=== PATIENT | male | born 1995 | race Caucasian/White ===

== ENCOUNTER 2021-03-20 21:36 | Inpatient (IN) | payer OTHER, SELFPAY ==
[2021-03-20 21:59] LABS: Absolute Lymphocytes (CBC) 0.8 K/uL (0.7-4.9); Basophils % 0.2 % (0-1.3); Hematocrit 51.3 % (39.6-49.0); Lymphocytes % 2.9 % (15.3-44.8); MPV 9.2 fL (7.6-11.3); RBC Red Blood Cell Count 5.73 M/uL (4.33-5.43)
[2021-03-20] MEDS ORDERED: NA CHLORIDE 0.9% 1,000 ML ONE ×2 (22:03→23:53)
[2021-03-20] MEDS ORDERED: ONDANSETRON 4 MG/2 ML VIAL ONE ×2 (22:06→22:51)
[2021-03-20 22:07] LABS: Protime INR 1.08
[2021-03-20 22:39] LABS: ALT/SGPT 31 U/L (12-78); AST/SGOT 18 U/L (15-37); Alkaline Phosphatase 106 U/L (45-117); BUN Blood Urea Nitrogen 28 mg/dL (7-18); Bicarbonate 25 mmol/L (21-32); Bilirubin Direct 0.2 mg/dL (0-0.2); Bilirubin Total 1.8 mg/dL (0.2-1.0); Creatine Phosphokinase 265 U/L (39-308); Glucose Level 153 mg/dL (74-106); Magnesium 2.7 mg/dL (1.8-2.4); NT PRO-BNP 1152 pg/mL (<125); Potassium 4.4 mmol/L (3.5-5.1); Protein, Total 11.6 g/dL (6.4-8.2); Sodium Level 133 mmol/L (136-145); Troponin (Emerg Dept Use Only) < 0.02 ng/mL (0.0-0.045)
[2021-03-20 22:56] LABS: Blood Morphology Comment NOT SEEN (NOT SEEN); Platelet Estimate ADEQ
[2021-03-20 23:02] LABS: Albumin 6.4 g/dL (3.4-5.0)
[2021-03-21] MEDS ORDERED: D5 0.9 NS 1,000 ML IV ONE (00:13)
[2021-03-21] MEDS ORDERED: METOCLOPRAMIDE 10 MG/2mL INJ ONE (00:14)
--- NOTE | 2021-03-21 01:19 | EDPHYS ---
Physician Documentation [facility] Name: Shivam Larson Age: 26 yrs Sex: Male : 1995 Arrival Date: 03/20/2021 Time: 21:38 Bed 27 Private MD: ED Physician Jesus Delatorre HPI: 03/20 22:51 This 26 yrs old Male presents to ER via EMS with complaints of Vomiting. mh7 22:51 The patient presents to the emergency department with nausea, that is moderate, mh7 vomiting, that is intermittent, described as clear fluid. Onset: The symptoms/episode began/occurred today. Possible causes: unknown. The symptoms are aggravated by nothing. The symptoms are alleviated by nothing. Associated signs and symptoms: Pertinent negatives: abdominal pain, anorexia, belching, constipation, diarrhea, dysuria, fever, flatulence, GI bleeding, hematuria. Severity of symptoms: At their worst the symptoms were moderate today, in the emergency department the symptoms have improved markedly. 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 He states that he has been working outside all day.. Historical: - Allergies: 21:52 No Known Allergies; ea - Home Meds: 21:52 None [Active]; ea - PMHx: 21:52 None; ea - PSHx: 21:52 None; ea - Immunization history:: Adult Immunizations up to date. - Social history:: Smoking status: Patient denies any tobacco usage or history of. ROS: 22:51 Constitutional: Negative for fever, chills, and weight loss, Eyes: Negative for injury, mh7 pain, redness, and discharge, ENT: Negative for injury, pain, and discharge, Neck: Negative for injury, pain, and swelling, Cardiovascular: Negative for chest pain, palpitations, and edema, Respiratory: Negative for shortness of breath, cough, wheezing, and pleuritic chest pain, Back: Negative for injury and pain, : Negative for injury, bleeding, discharge, and swelling, MS/Extremity: Negative for injury and deformity, Skin: Negative for injury, rash, and discoloration, Neuro: Negative for headache, weakness, numbness, tingling, and seizure, Psych: Negative for depression, anxiety, suicide ideation, homicidal ideation, and hallucinations, Allergy/Immunology: Negative for hives, rash, and allergies, Endocrine: Negative for neck swelling, polydipsia, polyuria, polyphagia, and marked weight changes, Hematologic/Lymphatic: Negative for swollen nodes, abnormal bleeding, and unusual bruising. Exam: 22:51 Constitutional: This is a well developed, well nourished patient who is awake, alert, mh7 and in no acute distress. Head/Face: Normocephalic, atraumatic. Eyes: Pupils equal round and reactive to light, extra-ocular motions intact. Lids and lashes normal. Conjunctiva and sclera are non-icteric and not injected. Cornea within normal limits. Periorbital areas with no swelling, redness, or edema. Neck: Trachea midline, no thyromegaly or masses palpated, and no cervical lymphadenopathy. Supple, full range of motion without nuchal rigidity, or vertebral point tenderness. No Meningismus. Chest/axilla: Normal chest wall appearance and motion. Nontender with no deformity. No lesions are appreciated. Cardiovascular: Regular rate and rhythm with a normal S1 and S2. No gallops, murmurs, or rubs. Normal PMI, no JVD. No pulse deficits. Respiratory: Lungs have equal breath sounds bilaterally, clear to auscultation and percussion. No rales, rhonchi or wheezes noted. No increased work of breathing, no retractions or nasal flaring. Abdomen/GI: Soft, non-tender, with normal bowel sounds. No distension or tympany. No guarding or rebound. No evidence of tenderness throughout. Back: No spinal tenderness. No costovertebral tenderness. Full range of motion. Skin: Warm, dry with normal turgor. Normal color with no rashes, no lesions, and no evidence of cellulitis. MS/ Extremity: Pulses equal, no cyanosis. Neurovascular intact. Full, normal range of motion. Neuro: Awake and alert, GCS 15, oriented to person, place, time, and situation. Cranial nerves II-XII grossly intact. Motor strength 5/5 in all extremities. Sensory grossly intact. Cerebellar exam normal. Normal gait. Psych: Awake, alert, with orientation to person, place and time. Behavior, mood, and affect are within normal limits. Vital Signs: 21:39 BP 152 / 93; Pulse 83; Resp 18; Temp 98; Pulse Ox 99% ; ea 22:30 BP 135 / 84; Pulse 73; Resp 19; Pulse Ox 100% ; rr5 03/21 00:00 BP 132 / 81; Pulse 75; Resp 20; Pulse Ox 98% ; rr5 01:15 BP 121 / 70; Pulse 70; Resp 16; Pulse Ox 98% ; Weight 95.25 kg; Height 6 ft. 2 in. rr5 (187.96 cm); 01:15 Body Mass Index 26.96 (95.25 kg, 187.96 cm) rr5 MDM: 01:16 Differential diagnosis: gastritis, pancreatitis, diverticulitis, viral gastroenteritis, mh7 gastroenteritis, Substance Abuse. Data reviewed: vital signs, nurses notes, EMS record, lab test result(s), CBC, electrolytes, urinalysis, EKG, radiologic studies, CT scan, plain films. Data interpreted: Pulse oximetry: on room air is 98 %. Interpretation: normal. Counseling: I had a detailed discussion with the patient and/or guardian regarding: the historical points, exam findings, and any diagnostic results supporting the discharge/admit diagnosis, lab results, radiology results, the need for further work-up and treatment in the hospital. Response to treatment: the patient's symptoms have mildly improved after treatment. 01:19 Patient medically screened. [facility] 03/20 21:40 Order name: Basic Metabolic Panel; Complete Time: 23: 03/20 21:40 Order name: CBC with Diff; Complete Time: : 03/20 21:40 Order name: LFT's; Complete Time: 23: 03/20 21:40 Order name: Magnesium; Complete Time: 23: 03/20 21:40 Order name: NT PRO-BNP; Complete Time: 23: 03/20 21:40 Order name: PT-INR; Complete Time: 22:54 03/20 21:40 Order name: Troponin (emerg Dept Use Only); Complete Time: 23:03/20 21:50 Order name: CPK; Complete Time: 23: 03/20 21:50 Order name: Acetaminophen; Complete Time: 23: 03/20 21:50 Order name: ETOH Level; Complete Time: 22:54 03/20 21:50 Order name: Ptt, Activated; Complete Time: 22:54 03/20 21:50 Order name: Salicylate; Complete Time: 22:54 03/20 21:50 Order name: Urine Drug Screen 03/20 22:07 Order name: Lipase [facility] 03/20 22:07 Order name: Lipase; Complete Time: 23:50 [facility] 03/20 22:11 Order name: Blood Culture Adult (2) [facility] 03/20 22:11 Order name: Manual Differential; Complete Time: 23:25 [facility] 03/20 22:12 Order name: Blood Culture [facility] 03/21 01:14 Order name: Procalcitonin [facility] 03/21 01:14 Order name: CRP [facility] 03/21 01:14 Order name: Procalcitonin [facility] 03/21 01:14 Order name: C-Reactive Protein [facility] 03/21 01:18 Order name: COVID-19 : Document "Date of Symptom Onset" if Symptomatic. [facility] 03/21 01:18 Order name: CORONAVIRUS [facility] 03/21 04:10 Order name: SARS-COV-2 RT PCR [facility] 03/21 06:01 Order name: Urine Dipstick-Ancillary [facility] 03/21 06:11 Order name: CBC with Automated Diff [facility] 03/21 06:41 Order name: Comprehensive Metabolic Panel [facility] 03/21 06:41 Order name: Uric Acid [facility] 03/21 06:41 Order name: Creatine Phosphokinase [facility] 03/20 21:40 Order name: XRAY Chest (1 view) 03/20 21:40 Order name: EKG; Complete Time: 21:41 03/20 21:40 Order name: Cardiac monitoring; Complete Time: 21:44 03/20 21:40 Order name: EKG - Nurse/Tech; Complete Time: 21:43 03/20 21:40 Order name: IV Saline Lock; Complete Time: 21:43 03/20 21:40 Order name: Labs collected and sent; Complete Time: 21:44 03/20 21:40 Order name: O2 Per Protocol; Complete Time: 21:44 03/20 21:40 Order name: O2 Sat Monitoring; Complete Time: 21:46 03/20 21:50 Order name: Urine Dipstick-Ancillary (obtain specimen); Complete Time: 05:56 03/20 23:27 Order name: CT Abd/Pelvis - Without Contrast [facility] 03/21 06:41 Order name: T4 Free [facility] 03/21 06:41 Order name: Magnesium [facility] 03/21 06:41 Order name: Thyroid Stimulating Hormone [facility] 03/21 08:04 Order name: Urine Microscopic Only [facility] 03/21 12:50 Order name: EDMS Administered Medications: 03/20 22:21 Drug: Zofran (Ondansetron) 4 mg Route: IVP; Site: right antecubital; ea 03/21 00:27 Follow up: Response: No adverse reaction ea 03/20 22:21 Drug: NS 0.9% 1000 ml Route: IV; Rate: 1 bolus; Site: right antecubital; ea 23:10 Follow up: Response: No adverse reaction; IV Status: Completed infusion; IV Intake: rr5 1000ml 23:36 Drug: NS 0.9% 1000 ml Route: IV; Rate: 1000 ml; Site: right antecubital; ea 03/21 01:00 Follow up: Response: No adverse reaction; IV Status: Completed infusion; IV Intake: rr5 1000ml 03/20 23:50 Not Given (Other Intervention Used): Pepcid (famotidine) 20 mg IVP once; dilute with 10 ea mL 0.9% NaCl; give over 2 minutes 03/21 01:03 Drug: Reglan (metoCLOPramide) 10 mg Route: IVP; Site: right antecubital; ea 02:10 Follow up: Response: No adverse reaction rr5 01:04 Drug: D5-NS 1000 ml Route: IV; Rate: bolus; Site: right antecubital; ea 05:34 Follow up: Response: No adverse reaction; IV Status: Completed infusion; IV Intake: rr5 1000ml Disposition: 03/21/21 01:19 Hospitalization ordered by Keith Dean for Inpatient Admission. Preliminary diagnosis are Dehydration, Nausea and vomiting - Intractable, Acute Kidney Injury, Leukocytosis. - Bed requested for Telemetry/MedSurg (Inpatient). - Status is Inpatient Admission. zb - Condition is Stable. - Problem is new. - Symptoms have improved. Signatures: Dispatcher [employer] EDMS Rebecca Matos RN Kennedy Ellison FNP-C RETURNS SUPERVISOR-Cla1 Oralia Garner RN RN ea [place], MyKena 2 Jesus Delatorre MD MD [facility] Noy Cole RN RN zb Roque Michael RN rr5 Corrections: (The following items were deleted from the chart) 03/20 21:51 21:50 Suicide Screening ([place]) ordered. ea ea 03/21 01:21 01:19 Hospitalization Ordered by Michael Fernandez MD for Inpatient Admission. Preliminary la1 diagnosis is Dehydration; Nausea and vomiting - Intractable; Acute Kidney Injury; Leukocytosis. Bed requested for Telemetry/MedSurg (Inpatient). Status is Inpatient Admission. Condition is Stable. Problem is new. Symptoms have improved. mh7 02:47 01:21 03/21/2021 01:19 Hospitalization Ordered by Keith Dean DO for Inpatient mw2 Admission. Preliminary diagnosis is Dehydration; Nausea and vomiting - Intractable; Acute Kidney Injury; Leukocytosis. Bed requested for Telemetry/MedSurg (Inpatient). Status is Inpatient Admission. Condition is Stable. Problem is new. Symptoms have improved. la1 12:46 02:47 03/21/2021 01:19 Hospitalization Ordered by Keith Dean DO for Inpatient dw Admission. Preliminary diagnosis is Dehydration; Nausea and vomiting - Intractable; Acute Kidney Injury; Leukocytosis. Bed requested for [facility] ER HOLD. Status is Inpatient Admission. Condition is Stable. Problem is new. Symptoms have improved. mw2 13:48 12:46 03/21/2021 01:19 Hospitalization Ordered by Keith Dean DO for Inpatient zb Admission. Preliminary diagnosis is Dehydration; Nausea and vomiting - Intractable; Acute Kidney Injury; Leukocytosis. Bed requested for Telemetry/MedSurg (Inpatient). Status is Inpatient Admission. Condition is Stable. Problem is new. Symptoms have improved. dw
--- NOTE | 2021-03-21 01:19 | ER ---
Nurse's Notes [facility] Name: Shivam Larson Age: 26 yrs Sex: Male : 1995 Arrival Date: 03/20/2021 Time: 21:38 Bed 27 Private MD: Diagnosis: Dehydration;Nausea and vomiting-Intractable;Acute Kidney Injury;Leukocytosis Presentation: 03/20 21:39 Ebola Screen: No symptoms or risks identified at this time. Initial Sepsis Screen: Does ea the patient meet any 2 criteria? No. Patient's initial sepsis screen is negative. Does the patient have a suspected source of infection? No. Patient's initial sepsis screen is negative. Risk Assessment: Do you want to hurt yourself or someone else? Patient reports no desire to harm self or others. 21:39 Acuity: CRISTOBAL 3 ea 21:48 Chief complaint: EMS states: Pt reported he took xos last night was up all night and ea went to work outside [place], pt reported he started to feel cramping all over. Coronavirus screen: At this time, the client does not indicate any symptoms associated with coronavirus-19. Onset of symptoms was March 20, 2021. 21:48 Method Of Arrival: EMS: [facility] ea Triage Assessment: 21:52 General: Appears uncomfortable, Behavior is appropriate for age. Pain: Complains of ea pain in generalized Quality of pain is described as crampy. Historical: - Allergies: 21:52 No Known Allergies; ea - Home Meds: 21:52 None [Active]; ea - PMHx: 21:52 None; ea - PSHx: 21:52 None; ea - Immunization history:: Adult Immunizations up to date. - Social history:: Smoking status: Patient denies any tobacco usage or history of. Screenin:39 Abuse screen: Denies threats or abuse. Nutritional screening: No deficits noted. ea Tuberculosis screening: No symptoms or risk factors identified. Fall Risk None identified. Assessment: 03/21 00:00 Reassessment: Patient appears in no apparent distress at this time. Patient is alert, rr5 oriented x 3, equal unlabored respirations, skin warm/dry/pink. back from CT scan awaiting for results. Vital Signs: 03/20 21:39 BP 152 / 93; Pulse 83; Resp 18; Temp 98; Pulse Ox 99% ; ea 22:30 BP 135 / 84; Pulse 73; Resp 19; Pulse Ox 100% ; rr5 03/21 00:00 BP 132 / 81; Pulse 75; Resp 20; Pulse Ox 98% ; rr5 01:15 BP 121 / 70; Pulse 70; Resp 16; Pulse Ox 98% ; Weight 95.25 kg; Height 6 ft. 2 in. rr5 (187.96 cm); 01:15 Body Mass Index 26.96 (95.25 kg, 187.96 cm) rr5 ED Course: 03/20 21:35 Inserted saline lock: 20 gauge in right antecubital area, using aseptic technique. rr5 ,using aseptic technique. inserted by oralia LOJA Blood collected. 21:38 Patient arrived in ED. ea 21:39 Patient has correct armband on for positive identification. Bed in low position. Call ea light in reach. Side rails up X2. 21:40 Triage completed. ea 21:40 EKG done, by ED staff, reviewed by Jesus Delatorre MD. rr5 21:41 Jesus Delatorre MD is Attending Physician. 7 21:48 Oralia Garner, FREEDOM is Primary Nurse. ea 21:51 Arm band placed on right wrist. Patient placed in an exam room, on a stretcher, on ea pulse oximetry. 21:55 XRAY Chest (1 view) In Process Unspecified. EDMS 03/21 00:14 CT Abd/Pelvis - Without Contrast In Process Unspecified. EDMS 00:15 No provider procedures requiring assistance completed. rr5 01:18 Michael Fernandez MD is Hospitalizing Provider. mh7 01:21 Keith Dean DO is Hospitalizing Provider. la1 01:45 Patient admitted, IV remains in place. ea 13:15 Primary Nurse role handed off by Oralia Garner, FREEDOM eb Administered Medications: 03/20 22:21 Drug: Zofran (Ondansetron) 4 mg Route: IVP; Site: right antecubital; ea 03/21 00:27 Follow up: Response: No adverse reaction ea 03/20 22:21 Drug: NS 0.9% 1000 ml Route: IV; Rate: 1 bolus; Site: right antecubital; ea 23:10 Follow up: Response: No adverse reaction; IV Status: Completed infusion; IV Intake: rr5 1000ml 23:36 Drug: NS 0.9% 1000 ml Route: IV; Rate: 1000 ml; Site: right antecubital; ea 03/21 01:00 Follow up: Response: No adverse reaction; IV Status: Completed infusion; IV Intake: rr5 1000ml 03/20 23:50 Not Given (Other Intervention Used): Pepcid (famotidine) 20 mg IVP once; dilute with 10 ea mL 0.9% NaCl; give over 2 minutes 03/21 01:03 Drug: Reglan (metoCLOPramide) 10 mg Route: IVP; Site: right antecubital; ea 02:10 Follow up: Response: No adverse reaction rr5 01:04 Drug: D5-NS 1000 ml Route: IV; Rate: bolus; Site: right antecubital; ea 05:34 Follow up: Response: No adverse reaction; IV Status: Completed infusion; IV Intake: rr5 1000ml Intake: 03/20 23:10 IV: 1000ml; Total: 1000ml. rr5 03/21 01:00 IV: 1000ml; Total: 2000ml. rr5 05:34 IV: 1000ml; Total: 3000ml. rr5 Outcome: 01:19 Decision to Hospitalize by Provider. [facility] 01:44 Admitted to ER Hold. Please see [facility] for further documentation. 01:44 Condition: stable 01:44 Instructed on the need for admit, Demonstrated understanding of instructions. 13:48 Patient left the ED. zb Signatures: Dispatcher [employer] EDMS Kennedy Coyle, REWORK OPERATOR-C REWORK OPERATOR-Cla1 Oralia Garner RN Renetta Metzger ea, Raymond, RN RN rr5 Jesus Delatorre MD MD 7 Noy Cole RN RN zb
--- NOTE | 2021-03-21 01:55 | P.HP ---
Certification for Inpatient Patient admitted to: Inpatient With expected LOS: >2 Midnights Patient will require the following post-hospital care: None Practitioner: I am a practitioner with admitting privileges, knowledge of patient current condition, hospital course, and medical plan of care. Services: Services provided to patient in accordance with Admission requirements found in Title 42 Section 412.3 of the Code of Federal Regulations Patient History Date of Service: 03/21/21 Primary Care Provider: none Reason for admission: Acute renal failure History of Present Illness: 26-year-old male with no significant past medical history presents emergency department for dehydration, cramps. Patient reports taking m ethamphetamine the night before last and working outside doing [employer] all day today. Patient is evaluated in the emergency department, labs significant for white blood cell count 27 point to sodium 133, chloride 92 creatinine 4.21 GFR 17 glucose 153 calcium 11.1 magnesium 2.7 T. bili 1.8 BNP 1150 to albumin 6.4. Patient appears very dehydrated. Patient does not appear septic, afebrile labs likely related to severe dehydration. Blood cultures, pro calcitonin ordered and pending. Patient given 3 L fluids in the emergency department ED provider wishes to admit for further evaluation and management of acute renal failure. - Past Medical/Surgical History -: Drug abuse -: none Psychosocial/ Personal History: Lives alone, works in [employer] - Family History Mother -: Cancer - Social History Smoking Status: Current some day smoker Alcohol use: Yes CD- Drugs: Yes Caffeine use: Yes Place of Residence: Home Review of Systems 10-point ROS is otherwise unremarkable General: Sweats, Weakness, Malaise, As per HPI Physical Examination - Physical Exam General: Alert, In no apparent distress, Oriented x3 HEENT: Atraumatic, PERRLA, Other (Mucous membranes dry) Neck: Supple, 2+ carotid pulse no bruit, No LAD Respiratory: Clear to auscultation bilaterally, Normal air movement Cardiovascular: Regular rate/rhythm, Normal S1 S2 Gastrointestinal: Normal bowel sounds, No tenderness Musculoskeletal: No tenderness Integumentary: No rashes Neurological: Normal speech, Normal strength at 5/5 x4 extr, Normal tone, Normal affect - Studies Laboratory Data (last 24 hrs) 03/20/21 21:45: Lipase 88 03/20/21 21:42: APTT 30.9 03/20/21 21:42: PT 12.4, INR 1.08 03/20/21 21:42: WBC 27.20 H*, Hgb 17.7, Hct 51.3 H, Plt Count 315 03/20/21 21:42: Sodium 133 L, Potassium 4.4, BUN 28 H, Creatinine 4.21 H, Glucose 153 H, Magnesium 2.7 H, Total Bilirubin 1.8 H, AST 18, ALT 31, Alkaline Phosphatase 106 Assessment and Plan - Plan Assessment Acute renal failure, leukocytosis, hyperalbuminemia, hypercalcemia secondary to severe dehydration complicated with amphetamine use Plan Acute renal failure, leukocytosis, hyperalbuminemia, hypercalcemia secondary to severe dehydration complicated with amphetamine use: Patient given 3 L of fluids in the emergency department, will continue IV fluids for hydration, repeat CBCs/chemistries with morning labs. Blood cultures, pro calcitonin obtained. Nephrology consulted, renal ultrasound ordered. Anticipate clinical improvement over the course of next 48-72 hr. Discussed need for adequate hydration and cessation of amphetamine use. DVT prophylaxis heparin 5000 subcutaneous twice daily. Discharge Plan: Home Plan to discharge in: Greater than 2 days - Advance Directives Does patient have a Living Will: No Does patient have a Durable POA for Healthcare: No - Code Status/Comfort Care Code Status Assessed: Yes (Full code) Critical Care: No Time Spent Managing Pts Care (In Minutes): 55
[2021-03-21] MEDS ORDERED: NA CHLORIDE 0.9% 1,000 ML IV SCH (04:43)
[2021-03-21] MEDS ORDERED: ONDANSETRON 4 MG/2 ML VIAL IV PRN (04:43)
[2021-03-21] MEDS ORDERED: NA CHLORIDE 0.9% 1,000 ML ONE (05:41)
[2021-03-21 06:00] LABS: Urine Blood 2+ (Negative); Urine Glucose 1+ (Negative); Urine Protein 2+ (Negative); Urine Specific Gravity >=1.030 (1.005-1.030); Urine pH 5.5 (5.0-7.0)
[2021-03-21 06:10] LABS: Absolute Lymphocytes (CBC) 1.4 K/uL (0.7-4.9); Basophils % 0.2 % (0-1.3); Hematocrit 43.8 % (39.6-49.0); Lymphocytes % 7.9 % (15.3-44.8); MPV 9.4 fL (7.6-11.3); RBC Red Blood Cell Count 4.87 M/uL (4.33-5.43)
--- NOTE | 2021-03-21 06:19 | P.PN ---
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 He plans to quit. He was in rehab for drugs. He was there for 9 months. He got out in November. He understands that drugs are not good for him. He wants to quit.) Physical Examination - Vital Signs Blood Pressure: 115/79 Pulse: 65 Respirations: 19 Pulse Ox (%): 98 - Studies Laboratory Data (last 24 hrs) 03/20/21 21:45: Lipase 88 03/20/21 21:42: APTT 30.9 03/20/21 21:42: PT 12.4, INR 1.08 03/20/21 21:42: WBC 27.20 H*, Hgb 17.7, Hct 51.3 H, Plt Count 315 03/20/21 21:42: Sodium 133 L, Potassium 4.4, BUN 28 H, Creatinine 4.21 H, Glucose 153 H, Magnesium 2.7 H, Total Bilirubin 1.8 H, AST 18, ALT 31, Alkaline Phosphatase 106 Assessment & Plan Discharge Plan: Home Plan to discharge in: 24 Hours Physician Review Additional Text: CT abdomen pelvis: Obtained. Final result pending. Renal ultrasound: Final result pending. Physical exam: General: Alert, In no apparent distress, Oriented x3 HEENT: Atraumatic, PERRLA, Other (Mucous membranes dry) Neck: Supple, 2+ carotid pulse no bruit, No LAD Respiratory: Clear to auscultation bilaterally, Normal air movement Cardiovascular: Regular rate/rhythm, Normal S1 S2 Gastrointestinal: Normal bowel sounds, No tenderness Musculoskeletal: No tenderness Integumentary: No rashes Neurological: Normal speech, Normal strength at 5/5 x4 extr, Normal tone, Normal affect Medical problem list: Acute renal failure, leukocytosis, hyperalbuminemia, hypercalcemia secondary to severe dehydration Positive for amphetamines and THC Plan Acute renal failure, leukocytosis, hyperalbuminemia, hypercalcemia secondary to severe dehydration complicated with amphetamine use: Patient received 3 L of normal saline. Continue with aggressive IV fluids. Anticipate improvement. Patient significantly improved. Renal ultrasound to be obtained. Patient counseled on amphetamine use and THC. Patient had been to rehab in the recent past through a rastafarian. He recently got out of rehab in November. Patient plans to go back. Anticipate continued improvement. Await recommendations by nephrology. Possible discharge in the next 24 hours. Will discuss with nephrology. I will turn the service over to the hospitalist team tomorrow. I will go plan of care with him. Positive for amphetamines and THC: Patient admits to drug use. Patient had been to rehab for 9 months through a rastafarian. Patient got out of rehab in November. Recommendation is for the patient to go back to rehab or get assistance through Narcotics Anonymous. Patient understands continued risk. He plans to quit. CODE STATUS: Full code DVT prophylaxis: Heparin Advanced care planning: Home at discharge Time Spent Managing Pts Care (In Minutes): 55
[2021-03-21 06:26] LABS: Barbiturates NEGATIVE (NEGATIVE); Benzodiazepines NEGATIVE (NEGATIVE); Cocaine NEGATIVE (NEGATIVE); METHAMPHETAM POSITIVE (NEGATIVE); Methadone NEGATIVE (NEGATIVE); Opiates NEGATIVE (NEGATIVE); Phencyclidine NEGATIVE (NEGATIVE); THC Cannibis POSITIVE (NEGATIVE)
[2021-03-21] MEDS: NA CHLORIDE 0.9% 1,000 ML IV SCH ×3 (06:30→19:04)
[2021-03-21 06:40] LABS: Albumin 4.6 g/dL (3.4-5.0); Bilirubin Total 1.3 mg/dL (0.2-1.0); Magnesium 2.5 mg/dL (1.8-2.4); Potassium 4.4 mmol/L (3.5-5.1); Protein, Total 8.9 g/dL (6.4-8.2); Thyroid Stimulating Hormone 1.02 uIU/mL (0.360-3.740); Uric Acid 7.4 mg/dL (3.5-7.2)
[2021-03-21 08:03] LABS: Calcium Oxalate Crystals- Ur PRESENT (NONE SEEN); Urine Amorphous Sediment 1+ /HPF (NONE SEEN); Urine Bacteria <20 /HPF (NONE SEEN); Urine Mucus HEAVY /HPF (NONE SEEN); Urine RBC <5 /HPF (NONE SEEN)
--- NOTE | 2021-03-21 08:43 | EKG ---
Test Date: 2021-03-20 Test Time: 21:37:34 Floral Decorator: RR MEASUREMENT RESULTS: Intervals: Rate: 76 TX: 130 QRSD: 94 QT: 374 QTc: 420 Barre: P: 78 TX: 130 QRS: 88 T: 66 INTERPRETIVE STATEMENTS: Normal sinus rhythm Normal ECG No previous ECG available for comparison Electronically Signed On 03-21-21 08:42:49 CDT by Balwinder Rojas
[2021-03-21] MEDS: HEPARIN 5000 UNIT/ML 1 ML VIAL SQ SCH ×2 (09:00→20:54)
[2021-03-21] MEDS ORDERED: HEPARIN 5000 UNIT/ML 1 ML VIAL ONE (09:38)
--- NOTE | 2021-03-21 11:21 | RAD REPORT ---
EXAM DESCRIPTION: [place] Single View03/20/2021 9:55 pm CLINICAL HISTORY: Chest pain COMPARISON: none FINDINGS: The lungs appear clear of acute infiltrate. The heart is normal size IMPRESSION: No acute abnormalities displayed
[2021-03-21] MEDS: FAMOTIDINE 20 MG TAB PO SCH ×2 (12:00→20:54)
[2021-03-21] MEDS ORDERED: FAMOTIDINE 20 MG TAB ONE (12:24)
--- NOTE | 2021-03-21 12:49 | RAD REPORT ---
EXAM DESCRIPTION: US - Renal Ultrasound-Complete - 03/21/2021 11:15 am CLINICAL HISTORY: Acute renal failure COMPARISON: None FINDINGS: The right kidney measures 13 cm with a mildly increased echotexture. The left kidney measures 13 cm with a mildly increased echotexture. Hydronephrosis is not seen. No gross abnormality of bladder IMPRESSION: Mildly increased renal echotexture consistent with parenchymal disease
[2021-03-21] MEDS ORDERED: NA CHLORIDE 0.9% 1,000 ML IV ONE (16:29)
[2021-03-21 16:35] VITALS: O2SAT 99
--- NOTE | 2021-03-21 17:57 | CON ---
Date of Consultation: 03/21/2021 Additional Consulting Physician: Keith Dean D.O. Reason For Consultation: Elevated BUN and creatinine, electrolyte imbalance. History Of Present Illness: This is a pleasant 26-year-old gentleman without any significant past me dical history according to him. The patient had amphetamine use yesterday and he was awake all the n ight overactive. The patient according to him he tried to well hydrate himself, but gradually starte d feeling sick and started having a cramp. For that reason, he reported to the hospital. Upon arriv al to the hospital, the patient found to have elevation in BUN and creatinine. Creatinine was above 2 with hypercalcemia. For that reason, we have been consulted. The patient denied taking any nonste roidal. Again, the patient has been taking amphetamine. Past Medical History: Negative. Past Surgical History: Negative. Family History: Positive for cancer. Social History: Active smoker. Active alcohol. Active drugs abuse. Review of Systems: Head and Neck: No red eye. No ear pain. GI: Has nausea and vomiting. : No polyuria. No dysuria. No hematuria. Kettle Operator: Not applicable. Respiratory: No shortness of breath. Cardiovascular: No chest pain. Endocrine: No polydipsia. Skin: No rash. Neuro: No weakness. Musculoskeletal: Has muscle cramps. Home Medications: Negative. Physical Examination: General: When I saw the patient, the patient was lying in bed. Vital Signs: Blood pressure 121/65, pulse of 64, afebrile. The patient had good urine output. Chest: Clear to auscultation. Heart: S1, S2 regular. Abdomen: Soft and nontender. Extremities: No edema. Neurologic: Alert, oriented x3. No focal. Laboratory Data: WBC 18, H and H 14.7/43.8, platelet 267. Yesterday, H and H 17.7/51.3. Sodium 138 , potassium 4.4, bicarb 26, BUN 29, creatinine 2.3, uric acid 7.4, calcium down to 8.9, magnesium 2.5 . Yesterday, calcium 11.1. C-reactive protein of 12. CK 614. PTH is still pending. Urinalysis; s pecific gravity 1.030, negative for rbc. Urine drug screen positive for amphetamine and THC. Current Medications: The patient on include IV fluid of normal saline, Pepcid. Assessment And Plan: 1.Acute kidney injury mostly secondary to dehydration, heat exertion superimposed with mild rhabdomy olysis and calcium diuresis secondary to the hypercalcemia. I do not see any activity in the urine, doubt to be any nephritis. I am going to continue aggressive hydration for the patient. We will get renal ultrasound to rule out any obstruction and we will monitor the patient. 2.Hypercalcemia secondary to dehydration, resolved. Do not need further workup. 3.Heat exhaustion. Continue aggressive hydration. I bolus the patient with another L of normal sanjeev ine. Continue on current maintenance 125. 4.Marginal hyponatremia secondary to depletional. Continue hydration. 5.Contraction alkalosis secondary to calcium diuresis, dehydration. Continue intravenous fluid. 6.Elevation in uric acid secondary to dehydration. No need that for now. ROCKY/BRETT Voice ID: [id number] Report ID: [id number]
[2021-03-21 19:22] LABS: Urine Protein/Creatinine Ratio 0.07 ratio (<0.15)
[2021-03-22] MEDS: NA CHLORIDE 0.9% 1,000 ML IV SCH ×4 (03:49→14:10)
[2021-03-22 04:22] LABS: Absolute Lymphocytes (CBC) 2.6 K/uL (0.7-4.9); Basophils % 0.6 % (0-1.3); Hematocrit 38.4 % (39.6-49.0); MPV 9.2 fL (7.6-11.3)
[2021-03-22 05:01] LABS: Albumin 3.7 g/dL (3.4-5.0); Bilirubin Total 1.4 mg/dL (0.2-1.0); Magnesium 2.4 mg/dL (1.8-2.4); Phosphorus 2.5 mg/dL (2.5-4.9); Protein, Total 6.9 g/dL (6.4-8.2)
[2021-03-22 06:32] VITALS: BMI 25.3
[2021-03-22] MEDS: FAMOTIDINE 20 MG TAB PO SCH (08:57)
[2021-03-22] MEDS: HEPARIN 5000 UNIT/ML 1 ML VIAL SQ SCH (08:57)
--- NOTE | 2021-03-22 11:43 | RAD REPORT ---
EXAM DESCRIPTION: CT - Abdomen Pelvis Wo Contrast - 03/21/2021 6:16 am CLINICAL HISTORY: 26 years, Male, NAUSEA / VOMITING COMPARISON: None. TECHNIQUE: Multiple transaxial tomograms of the abdomen and pelvis were performed from the lung base s to the symphysis pubis 3 mm slice thickness at 3 mm interval reconstruction, without administration of IV and oral contrast. Multiplanar reformats in the sagittal and coronal plane were generated and reviewed. This exam was performed according to our departmental dose-optimization protocol, which includes auto mated exposure control, adjustment of the mA and/or kV according to patient size and/or use of iterat gerhard reconstruction technique. FINDINGS: The lack of IV and oral contrast limits evaluation of solid organs, subtle lesions cannot be excluded. The lung bases demonstrate to be clear. Grossly the unopacified liver, gallbladder, pancreas, spleen and adrenal glands demonstrate to be wit hin normal limits, no significant focal lesions were identified. Punctate calcifications are seen w ithin the spleen. The kidneys demonstrate grossly unremarkable. There is no evidence for nephrolithiasis and/or hydro nephrosis. No focal masses were demonstrated. The ureters displays normal appearance with normal caliber, no hydroureter was seen. Grossly the unopacified stomach, small bowel and large bowel demonstrate to be within normal limits. There is no evidence for bowel dilatation/or free air. The urinary bladder demonstrate to be partially distended with no gross abnormalities. The prostate g land demonstrate to be within normal limits The aorta demonstrate to be within normal limits. There is no retroperitoneal lymphadenopathy. There is no evidence for ascites. The rest of the soft tiss ue demonstrate to be grossly unremarkable. IMPRESSION: No evidence for nephrolithiasis and/or hydronephrosis. Unremarkable CT scan of the abdomen and pelvis without contrast. Electronically signed by: George Fox MD 03/21/2021 12:22 AM CDT Due to temporary technical issues with the PACS/Fluency reporting system, reports are being signed by the in house radiologist without review as a courtesy to ensure prompt reporting. The interpreting r adiologist is fully responsible for the content of the report.
[2021-03-22] MEDS ORDERED: NA CHLORIDE 0.9% 2,000 ML IV ONE (12:42)
[2021-03-22] MEDS ORDERED: HYDROCORTISONE SUC 100 MG INJ IV ONE (12:43)
[2021-03-22] MEDS ORDERED: WATER FOR INJ,STERILE 10 ML IV SCH (13:00)
[2021-03-22 18:05] VITALS: BP 116/66; TEMP 97.5
--- NOTE | 2021-03-22 22:27 | PN ---
Date of Progress Note: 03/22/2021 Chief Complaint: Abnormal renal function test. History Of Present Illness: The patient is a 26-year-old man without past medical history. Accordin g to him, he did not have any previous kidney problems. The patient has history of amphetamine use a nd today he is awake, alert, and cooperative. He is receiving IV fluids for acute kidney injury. He was found to have elevated BUN and creatinine. Creatinine was about 2 and was associated with hyper calcemia. Review of Systems: Denies fever or chills. Physical Examination: Lungs: Few crackles at bases. Heart: S1, S2. Abdomen: Soft, benign. Extremities: No edema. Laboratory Data: BUN was 29, creatinine 2.3, calcium improved to 8.9. Impression And Plan: 1.Acute kidney injury, mostly secondary to volume depletion, renal hypoperfusion. Continue IV fluid s. The patient likely has some evidence of rhabdomyolysis. Monitor CK level and continue IV hydrati on. 2.Hypercalcemia secondary to volume contraction. Continue IV fluids. Monitor phosphorus level and magnesium level. 3.Marginal hyponatremia, depletional. Continue IV fluids and adjust fluids according to results on daily renal panel. 4.Elevated uric acid secondary to volume depletion. Continue IV fluids. Monitor for any evidence of persistent hyperuricemia and gout. EB/MODL Voice ID: [id number] Report ID: [id number]
[2021-03-24 22:42] LABS: Vitamin D 1,25-Dihydroxy Total 32 pg/mL (18-72); Vitamin D,1,25-OH2, D2 <8 pg/mL
--- NOTE | 2021-03-29 02:43 | P.DS ---
Discharge Date: 03/22/21 Primary Care Provider: none Disposition: ROUTINE DISCHARGE Discharge Condition: GOOD Reason for Admission: Acute renal failure Consultations: Nephrology Brief History of Present Illness: 26-year-old male with no significant past medical history presents emergency department for dehydration, cramps. Patient reports taking methamphetamine the night before last and working outside doing [employer] all day today. Patient is evaluated in the emergency department, labs significant for white blood cell count 27 point to sodium 133, chloride 92 creatinine 4.21 GFR 17 glucose 153 calcium 11.1 magnesium 2.7 T. bili 1.8 BNP 1150 to albumin 6.4. Patient appears very dehydrated. Patient does not appear septic, afebrile labs likely related to severe dehydration. Blood cultures, pro calcitonin ordered and pending. Patient given 3 L fluids in the emergency department ED provider wishes to admit for further evaluation and management of acute renal failure. Hospital Course: Patient is clinically doing well with no new complaints. Patient renal function has stabilized. Patient clinically doing much better. CPK has improved. At this time, patient is stable for discharge home. Vital Signs/Physical Exam: Temp Pulse Resp BP Pulse Ox 97.5 F 50 17 116/66 100 03/22/21 16:00 03/22/21 16:00 03/22/21 16:00 03/22/21 16:00 03/22/21 16:00 General: Alert, In no apparent distress, Oriented x3 Laboratory Data at Discharge: WBC 8.10 K/uL (4.3-10.9) D 03/22/21 03:53 Hgb 12.9 g/dL (13.6-17.9) L 03/22/21 03:53 Hct 38.4 % (39.6-49.0) L 03/22/21 03:53 Plt Count 197 K/uL (152-406) D 03/22/21 03:53 PT 12.4 SECONDS (9.5-12.5) 03/20/21 21:42 INR 1.08 03/20/21 21:42 APTT 30.9 SECONDS (24.3-36.9) 03/20/21 21:42 Sodium 141 mmol/L (136-145) 03/22/21 03:53 Potassium 5.0 mmol/L (3.5-5.1) 03/22/21 03:53 BUN 23 mg/dL (7-18) H 03/22/21 03:53 Creatinine 1.13 mg/dL (0.55-1.3) D 03/22/21 03:53 Glucose 89 mg/dL (74-106) 03/22/21 03:53 Uric Acid 7.4 mg/dL (3.5-7.2) H 03/21/21 05:25 Phosphorus 2.5 mg/dL (2.5-4.9) 03/22/21 03:53 Magnesium 2.4 mg/dL (1.8-2.4) 03/22/21 03:53 Total Bilirubin 1.4 mg/dL (0.2-1.0) H 03/22/21 03:53 AST 36 U/L (15-37) 03/22/21 03:53 ALT 21 U/L (12-78) 03/22/21 03:53 Alkaline Phosphatase 57 U/L (45-117) 03/22/21 03:53 Lipase 88 U/L (73-393) 03/20/21 21:45 Home Medications: NK [No Home Meds] 03/21/21 Physician Discharge Instructions: OK TO DC IV AND DC HOME FOLLOW-UP WITH PRIMARY CARE PROVIDER IN 1-2 WEEKS Make sure you take in 3L of fluid daily over the next 3-4 days. RETURN TO THE ER IF symptoms worsens Return to work in 3 days; no strenuous activity for [address] RUELAS AT [phone] IF ANY QUESTIONS REGARDING HOSPITAL STAY. PLEASE CALL THE FLOOR AT [phone] IF ANY MEDICATION OR NURSING QUESTIONS. Diet: Regular Activity: Fall precautions Time spent managing pt's care (in minutes): 35
== END 2021-03-22 19:48 | disposition home or self-care (01) | DRG 683 ==
LOC: ER 21:36 → ERHOLD 03-21 01:40 → 2ND 03-21 13:06
PROVIDERS: ADMIT Family Medicine; ATTEND Family Medicine
DX: N17.9 Acute kidney failure, unspecified (principal); E87.1 Hypo-osmolality and hyponatremia; M62.82 Rhabdomyolysis; D72.829 Elevated white blood cell count, unspecified; E83.52 Hypercalcemia; E86.0 Dehydration; F15.90 Other stimulant use, unspecified, uncomplicated; F17.210 Nicotine dependence, cigarettes, uncomplicated; X30.XXXA Exposure to excessive natural heat, initial encounter; Y93.H2 Activity, gardening and landscaping; Z20.822 Contact with and (suspected) exposure to COVID-19
CPT/HCPCS: 36415; 71045; 74176; 76770; 80048; 80053; 80069; 80076; 80307; 80320; 80329; 81003; 81015; 82550; 82570; 82652; 83690; 83735; 83880; 83970; 84145; 84156; 84439; 84443; 84484; 84550; 85025; 85610; 85730; 86140; 87040; 87086; 87088; 93005; 96361; 96374; 96375; 99285; J1644; J1720; J2405; J7030; U0003

== ENCOUNTER 2022-06-02 11:45 | Emergency (ER) | payer OTHER ==
[2022-06-02 12:26] LABS: Absolute Lymphocytes (CBC) 3.1 K/uL (0.7-4.9); MCV 89.2 fL (80-100); MPV 7.5 fL (7.6-11.3); RBC Red Blood Cell Count 5.16 M/uL (4.33-5.43)
[2022-06-02 12:36] LABS: Protime INR 1.13
[2022-06-02] MEDS ORDERED: LORAZEPAM 1 MG TABLET ONE (12:36)
[2022-06-02 12:43] LABS: Albumin 3.8 g/dL (3.4-5.0); Bilirubin Direct 0.2 mg/dL (0-0.2); Bilirubin Total 0.5 mg/dL (0.2-1.0); Magnesium 2.3 mg/dL (1.8-2.4); Potassium 3.9 mmol/L (3.5-5.1); Protein, Total 7.8 g/dL (6.4-8.2)
[2022-06-02 13:07] LABS: Blood Morphology Comment NOT SEEN (NOT SEEN); Platelet Estimate ADEQ; White Blood Cell Scan OK (OK)
--- NOTE | 2022-06-02 13:29 | RAD REPORT ---
EXAM DESCRIPTION: RAD - Chest Single View - 06/02/2022 1:01 pm CLINICAL HISTORY: CHEST PAIN COMPARISON: Portable 03/20/2021 TECHNIQUE: AP portable chest image was obtained 06/02/2022 1:01 pm . FINDINGS: Lungs are clear. Interstitial pattern is similar to comparison. Heart and vasculature are normal. No measurable pleural effusion and no pneumothorax. No acute bony abnormality seen. No acute aortic findings suspected. IMPRESSION: No acute cardiopulmonary process. No significant change from comparison study.
[2022-06-02] MEDS ORDERED: NA CHLORIDE 0.9% 1,000 ML ONE (13:42)
[2022-06-02] MEDS ORDERED: ASPIRIN 81 MG CHEWABLE TABLET ONE (14:28)
--- NOTE | 2022-06-02 14:35 | RAD REPORT ---
EXAM DESCRIPTION: CT - Head Brain Wo Cont - 06/02/2022 2:23 pm CLINICAL HISTORY: visual changes COMPARISON: No comparisons TECHNIQUE: Axial 5 mm thick images of the head were obtained without IV contrast. All CT scans are performed using dose optimization technique as appropriate and may include automated exposure control or mA/KV adjustment according to patient size. FINDINGS: No intracranial hemorrhage, mass, edema or shift of mid-line structures. No acute infarcti on changes seen. No abnormal extra-axial fluid collections. Ventricles are normal. Mastoid air cells and visualized portions of the paranasal sinuses are clear. No acute bony findings. IMPRESSION: Negative non-contrast CT head examination.
--- NOTE | 2022-06-02 14:49 | EDPHYS ---
Physician Documentation [facility] Name: Shivam Larson Age: 27 yrs Sex: Male : 1995 Arrival Date: 06/02/2022 Time: 11:47 Bed 11 Private MD: ED Physician Marcus Ta HPI: 06/02 12:07 This 27 yrs old Male presents to ER via Ambulatory with complaints of GIBBONS, anxiety, jh7 chest pain, and elevated BP. 12:07 Onset: The symptoms/episode began/occurred acutely. Patient reports anxiety, elevated jh7 blood pressure, chest pain, and headache since this morning. Reports that he takes propanolol for hypertension and anxiety and took 2 this morning. Reports that he is having a lot of work-related anxiety and that his symptoms worsen when he know he has to go to work. Also reports anabolic steroid use since September.. Historical: - Allergies: 12:07 No Known Allergies; ld1 - Home Meds: 12:09 propranolol 10 mg oral tab [Active]; cephalexin 125 mg/5 mL Oral susr 10 mL every 6 ld1 hours [Active]; - PMHx: 12:07 Hypertensive disorder; Kidney disease; ld1 12:12 Heart arrythmia; Asthma; ld1 - PSHx: 12:07 None; ld1 - Immunization history:: Adult Immunizations up to date, Client reports having NOT received the Covid vaccine. - Social history:: Smoking status: Patient denies any tobacco usage or history of. Patient/guardian denies using alcohol. ROS: 12:07 Constitutional: Negative for fever, chills, and weight loss, Eyes: Negative for injury, jh7 pain, redness, and discharge, Neck: Negative for injury, pain, and swelling, Respiratory: Negative for shortness of breath, cough, wheezing, and pleuritic chest pain, Abdomen/GI: Negative for abdominal pain, nausea, vomiting, diarrhea, and constipation, Back: Negative for injury and pain, MS/Extremity: Negative for injury and deformity, Skin: Negative for injury, rash, and discoloration. 12:07 Eyes: Positive for visual disturbance, Intermittent flashing lights. None reported today. 12:07 Cardiovascular: Positive for chest pain, Negative for palpitations. 12:07 Neuro: Positive for headache, Negative for altered mental status, dizziness, loss of consciousness, speech changes, syncope. 12:07 Psych: Positive for anxiety, Negative for depression, suicide gesture, suicidal ideation. Exam: 12:07 Head/Face: Normocephalic, atraumatic. Eyes: Pupils equal round and reactive to light, [facility] extra-ocular motions intact. Lids and lashes normal. Conjunctiva and sclera are non-icteric and not injected. Cornea within normal limits. Periorbital areas with no swelling, redness, or edema. ENT: Nares patent. No nasal discharge, no septal abnormalities noted. Tympanic membranes are normal and external auditory canals are clear. Oropharynx with no redness, swelling, or masses, exudates, or evidence of obstruction, uvula midline. Mucous membranes moist. Cardiovascular: Regular rate and rhythm with a normal S1 and S2. No gallops, murmurs, or rubs. Normal PMI, no JVD. No pulse deficits. Respiratory: Lungs have equal breath sounds bilaterally, clear to auscultation and percussion. No rales, rhonchi or wheezes noted. No increased work of breathing, no retractions or nasal flaring. Abdomen/GI: Soft, non-tender, with normal bowel sounds. No distension or tympany. No guarding or rebound. No evidence of tenderness throughout. Back: No spinal tenderness. No costovertebral tenderness. Full range of motion. Skin: Warm, dry with normal turgor. Normal color with no rashes, no lesions, and no evidence of cellulitis. MS/ Extremity: Pulses equal, no cyanosis. Neurovascular intact. Full, normal range of motion. Neuro: Awake and alert, GCS 15, oriented to person, place, time, and situation. Cranial nerves II-XII grossly intact. Motor strength 5/5 in all extremities. Sensory grossly intact. Cerebellar exam normal. Normal gait. 12:07 Constitutional: The patient appears alert, awake, anxious. Vital Signs: 12:09 BP 153 / 84; Pulse 74; Resp 18; Temp 98.6(O); Pulse Ox 100% on R/A; Weight 104.33 kg; ld1 Height 6 ft. 2 in. (187.96 cm); Pain 0/10; 12:09 Body Mass Index 29.53 (104.33 kg, 187.96 cm) [facility] MDM: 11:59 Patient medically screened. [facility] 14:50 Differential diagnosis: Acute RI, panic attack, acute CVA. Data reviewed: vital signs, [facility] nurses notes, lab test result(s), EKG, radiologic studies, CT scan, plain films. Data interpreted: clinical lab assistant: rate is 74 beats/min, rhythm is normal sinus rhythm, Pulse oximetry: is 100 %. Interpretation: normal. Counseling: I had a detailed discussion with the patient and/or guardian regarding: the historical points, exam findings, and any diagnostic results supporting the discharge/admit diagnosis, to return to the emergency department if symptoms worsen or persist or if there are any questions or concerns that arise at home. Response to treatment: the patient's symptoms have resolved after treatment, the patient's pain is gone. ED course: Reviewed the patient's lab work and imaging. He remained stable throughout his ER visit and his symptoms resolved after Ativan was given. Advised him to get off anabolic steroids due to them likely causing his symptoms. He was prescribed hydroxyzine to use as needed for anxiety. If his symptoms return, or any new concerning symptoms develop, he may return to the ER for eval.. 06/02 11:59 Order name: Basic Metabolic Panel; Complete Time: 12:52 [facility] 06/02 11:59 Order name: CBC with Diff; Complete Time: 13:12 [facility] 06/02 11:59 Order name: LFT's; Complete Time: 12:52 [facility] 06/02 11:59 Order name: Magnesium; Complete Time: 12:52 [facility] 06/02 11:59 Order name: NT PRO-BNP; Complete Time: 12:52 [facility] 06/02 11:59 Order name: PT-INR; Complete Time: 12:52 [facility] 06/02 11:59 Order name: Troponin HS; Complete Time: 12:52 [facility] 06/02 11:59 Order name: XRAY Chest (1 view); Complete Time: 13:32 [facility] 06/02 12:31 Order name: CBC Smear Scan; Complete Time: 13:12 [facility] 06/02 12:52 Order name: Lactate; Complete Time: 13:52 [facility] 06/02 12:52 Order name: CK; Complete Time: 14:05 [facility] 06/02 14:11 Order name: CT Head Brain wo Cont; Complete Time: 14:46 [facility] 06/02 11:59 Order name: EKG; Complete Time: 12:00 [facility] 06/02 11:59 Order name: Cardiac monitoring; Complete Time: 14:56 [facility] 06/02 11:59 Order name: EKG - Nurse/Tech; Complete Time: 12:13 [facility] 06/02 11:59 Order name: IV Saline Lock; Complete Time: 12:15 [facility] 06/02 11:59 Order name: Labs collected and sent; Complete Time: 12:15 [facility] 06/02 11:59 Order name: O2 Per Protocol; Complete Time: 12:15 [facility] 06/02 11:59 Order name: O2 Sat Monitoring; Complete Time: 12:15 EC:07 Rate is 74 beats/min. Rhythm is regular. Right axis deviation noted. OK interval is [facility] normal at 140 msec. QRS interval is normal at 96 msec. QT interval is normal at 346 msec. No Q waves. T waves are Inverted in leads III, aVF. No ST changes noted. Clinical impression: NSR w/ Non-specific ST/T Changes. Administered Medications: 12:28 Drug: Ativan (LORazepam) 1 mg Route: PO; eh3 15:05 Follow up: Response: Marked relief of symptoms; Anxiety decreased 3 12:29 Not Given (Duplicate Order): Ativan (LORazepam) 1 mg IVP once eh3 13:37 Drug: NS 0.9% 1000 ml Route: IV; Rate: 1 bolus; Site: left antecubital; iw 15:04 Follow up: IV Status: Completed infusion; IV Intake: 1000ml eh3 14:19 Drug: Aspirin Chewable Tablet 324 mg Route: PO; 3 Disposition: 16:37 Co-signature as Attending Physician, Marcus Ta DO I agree with the assessment and va3 plan of care. Disposition Summary: 06/02/22 14:48 Discharge Ordered Location: Home [facility] Problem: chronic [facility] Symptoms: have improved [facility] Condition: Stable [facility] Diagnosis - Generalized anxiety disorder 7 - Chest pain, unspecified 7 Followup: [facility] - With: Private Physician - When: 2 - 3 days - Reason: Recheck today's complaints Discharge Instructions: - Form - Excuse from Work, School, or Physical Activity 3 - Discharge Summary Sheet [facility] - Panic Attack 7 - Nonspecific Chest Pain, Adult 7 - Generalized Anxiety Disorder, Adult jh7 Forms: - Medication Reconciliation Form 7 - Thank You Letter 7 Prescriptions: - Hydroxyzine HCl 50 mg Oral Tablet - take 1 tablet by ORAL route every 8 hours As needed; 20 tablet; Refills: 0, jh7 Product Selection Permitted Signatures: Dispatcher [employer] Florencia Sánchez RN RN iw Marcus Ta, DO ms3 Cait Real RN RN ld1 Abena Lema RN RN eh3 Dominique Wren FNP [place] [id number]
--- NOTE | 2022-06-02 14:49 | ER ---
Nurse's Notes [facility] Name: Shivam Larson Age: 27 yrs Sex: Male : 1995 Arrival Date: 06/02/2022 Time: 11:47 Bed 11 Private MD: Diagnosis: Generalized anxiety disorder;Chest pain, unspecified Presentation: 06/02 12:07 Chief complaint: Patient states: Lost my temper last night - saw "glitter in my eyes." ld1 Throbbing in my head all day morning - distended blood vessels in my head. Light sensitivity. High blood pressure. Pt reports use of steroids since September - states "I have always been quick to anger but now it is much worse.". 12:09 Coronavirus screen: At this time, the client does not indicate any symptoms associated ld1 with coronavirus-19. Ebola Screen: No symptoms or risks identified at this time. Initial Sepsis Screen: Does the patient meet any 2 criteria? No. Patient's initial sepsis screen is negative. Does the patient have a suspected source of infection? No. Patient's initial sepsis screen is negative. Risk Assessment: Do you want to hurt yourself or someone else? Patient reports no desire to harm self or others. Onset of symptoms was June 02, 2022. 12:09 Method Of Arrival: Ambulatory ld1 12:09 Acuity: CRISTOBAL 3 ld1 Triage Assessment: 12:09 General: Appears in no apparent distress. comfortable, Behavior is cooperative, ld1 appropriate for age, anxious. Pain: Denies pain. EENT: No signs and/or symptoms were reported regarding the EENT system. Neuro: Level of Consciousness is awake, alert, obeys commands, Oriented to person, place, time, situation, Appropriate for age. Cardiovascular: Capillary refill < 3 seconds Patient's skin is warm and dry. Respiratory: Airway is patent Respiratory effort is even, unlabored. GI: No signs and/or symptoms were reported involving the gastrointestinal system. : No signs and/or symptoms were reported regarding the genitourinary system. Derm: No signs and/or symptoms reported regarding the dermatologic system. Musculoskeletal: No signs and/or symptoms reported regarding the musculoskeletal system. Historical: - Allergies: 12:07 No Known Allergies; ld1 - Home Meds: 12:09 propranolol 10 mg oral tab [Active]; cephalexin 125 mg/5 mL Oral susr 10 mL every 6 ld1 hours [Active]; - PMHx: 12:07 Hypertensive disorder; Kidney disease; ld1 12:12 Heart arrythmia; Asthma; ld1 - PSHx: 12:07 None; ld1 - Immunization history:: Adult Immunizations up to date, Client reports having NOT received the Covid vaccine. - Social history:: Smoking status: Patient denies any tobacco usage or history of. Patient/guardian denies using alcohol. Screenin:41 Abuse screen: Denies threats or abuse. Denies injuries from another. Nutritional iw screening: No deficits noted. Tuberculosis screening: No symptoms or risk factors identified. Fall Risk IV access (20 points). Assessment: 14:41 Reassessment: Patient appears in no apparent distress at this time. Patient and/or iw family updated on plan of care and expected duration. Pain level reassessed. Patient is alert, oriented x 3, equal unlabored respirations, skin warm/dry/pink. Vital Signs: 12:09 BP 153 / 84; Pulse 74; Resp 18; Temp 98.6(O); Pulse Ox 100% on R/A; Weight 104.33 kg; ld1 Height 6 ft. 2 in. (187.96 cm); Pain 0/10; 12:09 Body Mass Index 29.53 (104.33 kg, 187.96 cm) ld1 ED Course: 11:47 Patient arrived in ED. am2 11:49 [facility]ren [facility] jh7 11:49 Marcus Ta DO is Attending Physician. jh7 12:09 Arm band placed on right wrist. ld1 12:10 Triage completed. ld1 12:15 Inserted saline lock: 20 gauge in left forearm, using aseptic technique. Blood ld1 collected. 13:03 XRAY Chest (1 view) In Process Unspecified. EDMS 13:16 Florencia Arambula, RN is Primary Nurse. iw 14:24 CT Head Brain wo Cont In Process Unspecified. EDMS 15:05 Patient has correct armband on for positive identification. Bed in low position. Call eh3 light in reach. Side rails up X2. Client placed on continuous cardiac and pulse oximetry monitoring. NIBP monitoring applied. Door closed. Noise minimized. Lights dimmed. Warm blanket given. 15:05 No provider procedures requiring assistance completed. IV discontinued, intact, eh3 bleeding controlled, No redness/swelling at site. Pressure dressing applied. Administered Medications: 12:28 Drug: Ativan (LORazepam) 1 mg Route: PO; 3 15:05 Follow up: Response: Marked relief of symptoms; Anxiety decreased eh3 12:29 Not Given (Duplicate Order): Ativan (LORazepam) 1 mg IVP once eh3 13:37 Drug: NS 0.9% 1000 ml Route: IV; Rate: 1 bolus; Site: left antecubital; 15:04 Follow up: IV Status: Completed infusion; IV Intake: 1000ml eh3 14:19 Drug: Aspirin Chewable Tablet 324 mg Route: PO; eh3 Medication: 15:06 VIS not applicable for this client. eh3 Intake: 15:04 IV: 1000ml; Total: 1000ml. eh3 Outcome: 14:48 Discharge ordered by . [facility] 15:05 Condition: stable eh3 15:05 Discharge instructions given to patient, Instructed on discharge instructions, follow up and referral plans. medication usage, Demonstrated understanding of instructions, follow-up care, medications, Prescriptions given X 1. 15:05 Discharged to home ambulatory. eh3 15:09 Patient left the ED. 3 Signatures: Dispatcher [employer] EDMS Florencia Arambula, RN RN iw Megan Enriquez Lauren, RN RN ld1 Abena Lema RN RN 3 Dominique Wren, SPECIAL POPULATION PARAPROFESSIONAL SPECIAL POPULATION PARAPROFESSIONAL [facility] Corrections: (The following items were deleted from the chart) 12:12 12:07 Chief complaint: Patient states: Lost my temper last night - saw "glitter in my ld1 eyes." Throbbing in my head all day morning - distended blood vessels in my head. Light sensitivity. High blood pressure. ld1
[2022-06-02 16:25] VITALS: BP 153/84; TEMP 98.6; O2SAT 100
--- NOTE | 2022-06-03 13:57 | EKG ---
Test Date: 2022-06-02 Test Time: 12:15:35 Draw Press Operator: ERROL MEASUREMENT RESULTS: Intervals: Rate: 74 DE: 140 QRSD: 96 QT: 346 QTc: 384 [place]: P: 68 DE: 140 QRS: 93 T: 2 INTERPRETIVE STATEMENTS: Normal sinus rhythm with sinus arrhythmia Rightward axis Cannot rule out Anterior infarct, age undetermined Abnormal ECG Compared to ECG 03/20/2021 21:37:34 Right-axis deviation now present Myocardial infarct finding now present Electronically Signed On 06-03-22 13:55:38 CDT by Gustavo Wood
== END 2022-06-02 15:09 | disposition home or self-care (01) ==
LOC: ER 11:45
DX: F41.1 Generalized anxiety disorder (principal); R07.9 Chest pain, unspecified; I10 Essential (primary) hypertension
CPT/HCPCS: 93005; 85025; 80048; 36415; 83735; 82550; 85610; 80076; 83605; 84484; 83880; 70450; 71045; 96360; 99284; J7030